=== PATIENT | male | born 1955 | race Two or more races ===

== ENCOUNTER 2017-10-28 11:53 | Day surgery (SDC) | payer OTHER ==
[2017-10-28] MEDS ORDERED: LR 1,000 ML IV ONE (12:04)
[2017-10-28] MEDS ORDERED: LIDOCAINE 1% 2 ML INJ ID PRN (12:04)
[2017-10-28] MEDS ORDERED: BACITRACIN ZINC 14.2 GM OINTTUBE TP ONE (12:35)
[2017-10-28] MEDS ORDERED: OXYMETAZOLINE 30 ML NASAL SPRAY ONE (12:36)
[2017-10-28] MEDS ORDERED: LIDOCAINE 1% 300 MG/30 ML SDV ONE (12:36)
[2017-10-28] MEDS ORDERED: LIDO/EPI 2% **for epidural** 20 ML SDV ONE (12:37)
[2017-10-28 12:56] VITALS: PULSE 55
[2017-10-28] MEDS ORDERED: MIDAZOLAM 2 MG/2 ML VIAL IVP ONE (13:31)
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
--- NOTE | 2017-10-28 13:39 | PDHPUP ---
History & Physical Update H&P update statement: This history and physical update is based on an assessment of the patient which was completed after admission or registration (within 24 hours), but prior to the surgery/procedure. H&P update: H&P reviewed & patient examined, no change in patient's condition since H&P completed
[2017-10-28] MEDS ORDERED: fentaNYL 100 MCG/2 ML INJ ONE (13:49)
[2017-10-28] MEDS ORDERED: ONDANSETRON 4 MG/2 ML VIAL ONE (13:50)
[2017-10-28] MEDS ORDERED: DEXAMETHASONE 4 MG/ML VIAL ONE ×2 (13:50)
[2017-10-28] MEDS ORDERED: LIDOCAINE 2% 5 ML SDV ONE (13:50)
[2017-10-28] MEDS ORDERED: PROMETHAZINE HCL 25 MG/ML INJ IVP PRN (14:34)
[2017-10-28] MEDS ORDERED: fentaNYL 100 MCG/2 ML INJ IVP PRN (14:34)
[2017-10-28] MEDS ORDERED: ACETAMINOPHEN 500 MG TAB PO PRN (14:34)
[2017-10-28] MEDS ORDERED: ENALAPRILAT DIHYDRATE 1.25 MG/ML VIAL IVP PRN (14:34)
[2017-10-28] MEDS ORDERED: NALOXONE HCL 0.4 MG/ML INJ IVP PRN (14:34)
[2017-10-28] MEDS ORDERED: LR 500 ML IV PRN (14:34)
[2017-10-28] MEDS ORDERED: ONDANSETRON 4 MG/2 ML VIAL IVP PRN (14:34)
[2017-10-28] MEDS ORDERED: OXYCODONE/APAP 5/325 TAB PO PRN (14:34)
[2017-10-28] MEDS ORDERED: PHENYLEPHRINE HCL 100 MCG/ML SYR ONE (14:47)
--- NOTE | 2017-10-28 15:24 | POSTANESTH ---
Post Anesthetic Evaluation Cardiovascular Status: Normal, Stable, Similar to Pre-Op Cond Respiratory Status: Normal, Stable, Similar to Pre-op Cond. Level of Consciousness/Mental Status: Can Participate in Eval, Alert and Oriented Pain Control: Adequate, Prn Tx Ordered Nausea/Vomiting Control: Adequate, Prn Tx Ordered Complications Possibly Related to Anesthesia: None Noted
--- NOTE | 2017-10-28 15:28 | POSTOPPROG ---
Post Op Note Date of Operation: 10/28/17 Surgeon: Huang Schultz Anesthesia: GET(General Endotracheal) Pre-op Diagnosis: Septal deviation, turbinate hypertrophy Post-op Diagnosis: Septal deviation, turbinate hypertrophy Indication: Septal deviation, turbinate hypertrophy Procedure: Septoplasty, inferior turbinate reduction Findings: Septal deviation, turbinate hypertrophy Inf/Abcess present in the surg proc area at time of surgery?: No Depth: Deep Incisional (Fascial) EBL: Minimal Complications: NONE Specimen(s): NONE
[2017-10-28] MEDS ORDERED: OXYMETAZOLINE 30 ML NASAL SPRAY EACHNARE PRN (15:29)
[2017-10-28 16:06] VITALS: TEMP 97.7
--- NOTE | 2017-10-28 16:11 | GOP ---
[f rep st] OPERATIVE REPORT DATE OF OPERATION: 10/28/2017 SURGEON: Huang Schultz MD ANESTHESIA: General. PREOPERATIVE DIAGNOSIS: Nasal obstruction secondary to left septal deviation and bilateral inferior turbinate hypertrophy. POSTOPERATIVE DIAGNOSIS: Nasal obstruction secondary to left septal deviation and bilateral inferior turbinate hypertrophy. PROCEDURE PERFORMED: FINDINGS: Obstructive left septal deviation and obstructive bilateral inferior turbinate hypertrophy . SPECIMENS: None. ESTIMATED BLOOD LOSS: 5 mL. DESCRIPTION OF PROCEDURE: Patient was brought to the operating room by Anesthesiology and placed on the operating table. Once appropriate level of anesthesia was achieved, bilateral inferior turbinate s, bilateral columella, and bilateral septum were injected with 1% lidocaine with 1:200,000 epinephri ne. Afrin-soaked pledgets were placed in bilateral nasal cavities. The patient was then prepped and draped in usual fashion. The pledgets were then removed. The remainder of the procedure was perfor med under 0 degree rigid video endoscopic visualization. A needle-tip Bovie electrocautery was used to create a left hemitransfixion incision. The submucoperichondrial and submucoperiosteal flap eleva tion was completed with a Dawes elevator and suction Clifton. A Dawes elevator was then used to crea te a vertical incision at the bony cartilaginous junction. A D knife was then used to incise the dev iated portion of quadrangular cartilage, taking care to leave at least 1 cm of dorsal septal and caud al strut. The contralateral mucosa was elevated off the bony septum. A straight Mayfield scissors was t hen used to cut the superior bony septum. The deviated portions of bony septum were removed with a T kirill. The mucosa was elevated down over the deviated maxillary crest. An osteotome was then use d to remove the cartilaginous and bony deviated portions of the maxillary crest. The artery from the incisive canal was seen to be oozing. This was cauterized with the needle-tip Bovie. The surgical bed, at this point, was dry. The mucosa was laid back in place and on endoscopic visualization of gatito th nasal cavities, the septum was found to be straight. Two 4-0 chromic interrupted sutures were jaycob roxann at the hemitransfixion incision. The left anterior inferior turbinate was inspected and a turbinate microdebrider was introduced into the anterior portion of it and there was good soft tissue reduction with this. This was then repeate d posteriorly where the septum had left a significant dent in the turbinate. The debrider was used i n this posterior portion. There was good submucosal resection completed with this. A Damien elevato r was then used to infracture then outfracture the turbinate. Afrin-soaked pledgets were then placed in the left nasal cavity. The turbinate microdebrider was then introduced into the right inferior t urbinate and was able to be run anteriorly to posteriorly throughout the turbinate. There was good s oft tissue reduction with this. The turbinate was then infractured and outfractured with a Clifton pete vator. Afrin-soaked pledgets were placed. After giving a while for the Afrin to create some vasocon striction, they were removed. There was some mild bleeding at the left anterior inferior turbinate. This was cauterized with the Bovie electrocautery. There was good hemostasis following this. Simil ben, at the right, there was some ooze at the anterior inferior turbinate and at the mid turbinate. This was cauterized with the Bovie electrocautery. There appeared to be good hemostasis at that henna e. Nasal cavities were suctioned out and reinspected. No bleeding was found. Bacitracin Mcduffie spli nts were placed in both nasal cavities and sutured in place with a single 4-0 Prolene suture. The patient tolerated these procedures well and was extubated in the operating room prior to being tr ansferred in good condition to the postanesthesia care unit. PROCEDURE PERFORMED: Septoplasty, inferior turbinate submucosal resection with outfracture. COMPLICATIONS: None. OPERATIVE INDICATIONS: Patient was seen in outpatient clinic and found to have severe nasal septal d eviation and obstruction secondary to turbinate hypertrophy and septal deviation. A trial of appropr iate conservative measures was unsuccessful and given this, he was deemed appropriate for the above-s tated procedures. The risks, benefits, and alternatives to the procedures were explained at length. The patient stated he understood and wished to go forward with the procedures. /[id number]/MODL
[2017-10-28 16:18] VITALS: BP 149/98; RESP 14
[2017-10-28] MEDS ORDERED: OXYCODONE/APAP 5/325 TAB ONE (17:03)
[2017-10-28 17:50] VITALS: O2SAT 92
== END 2017-10-28 17:50 | disposition home or self-care (01) ==
LOC: FSGY 11:53
PROVIDERS: ATTEND Otolaryngology
DX: J34.89 Other specified disorders of nose and nasal sinuses (principal); J34.2 Deviated nasal septum; J34.3 Hypertrophy of nasal turbinates; Z79.01 Long term (current) use of anticoagulants; I25.10 Atherosclerotic heart disease of native coronary artery without angina pectoris; I10 Essential (primary) hypertension; E78.4 Other hyperlipidemia; G47.30 Sleep apnea, unspecified; I45.10 Unspecified right bundle-branch block; Z95.5 Presence of coronary angioplasty implant and graft
CPT/HCPCS: J0171; J1100; J2250; J2370; J2405; J3010